=== PATIENT | male | born 1960 | race Hispanic/Latino ===

== ENCOUNTER 2016-11-15 15:47 | Inpatient (IN) | payer MEDICAID, OTHER ==
[~2016-11-15] VITALS: Ht 157.5 cm; Wt 79.4 kg
[~2016-11-15 15:47] MED LIST: ASPIRIN EC325 MG ORAL; ATENOLOL50 MG ORAL; COUMADIN10 MG ORAL; DIGOXIN250 MCG ORAL; FOLIC ACID1 MG ORAL; FUROSEMIDE40 MG ORAL; LISINOPRIL10 MG ORAL; LOPRESSOR25 M1 ORAL; MAGNESIUM OXID400 M1 ORAL; METFORMIN HCL500 M1 ORAL; METOPROLOL TART50 MG ORAL; MULTIVITAMINS1 EAC2 ORAL; OMEPRAZOLE20 M2 ORAL; SPIRONOLACTONE25 MG ORAL; VITAMIN B-1100 MG ORAL
[2016-11-15 16:20] VITALS: BP 115/63
--- NOTE | 2016-11-15 17:13 | Emergency Room Report ---
History of Present Illness General Chief Complaint: Alcohol Intoxication Source: Patient, EMS Present Illness HPI 56YOM BIBEMS for public intoxication. Patient drank 2 handles of vodka and 2 "Chris Cobras". Drinks regularly. Atraumatic. Denies chest pain, SOB, fever/ chills, abd pain. Denies drug use. Has sternotomy scar but cant explain why Allergies: Coded Allergies: No Known Allergies (Unverified , 12/22/14) Patient History Past Medical History: other - CHF, SVT Past Surgical History: unable to obtain Pertinent Family History: unable to obtain Social History: Reports: alcohol use, Denies: drug use, smoking Immunizations: UTD Reviewed Nursing Documentation: PMH: Agreed, PSxH: Agreed Nursing Documentation-PMH Past Medical History: No Stated History Hx Cardiac Problems: Yes - heart murmur, cardiomegaly surgery at 12 yrs of age Hx Hypertension: No Hx Pacemaker: No Hx Asthma: No Hx COPD: Yes Hx Diabetes: Yes Hx Cancer: No Hx Gastrointestinal Problems: No Hx Neurological Problems: No Review of Systems All Other Systems: limited - Acute intox Physical Exam Vital Signs Date Time Temp Pulse Resp B/P Pulse Ox O2 Delivery O2 Flow Rate FiO2 11/15/16 15:34 99.3 133 16 121/80 96 Room Air Sp02 EP Interpretation: reviewed, abnormal General Appearance: normal inspection, well appearing, no apparent distress, alert, other - +AOB, intoxicated Head: normocephalic, atraumatic Eyes: bilateral eye EOMI, bilateral eye PERRL ENT: normal ENT inspection, hearing grossly normal, normal voice Neck: normal inspection, full range of motion, supple, no bony tend Respiratory: normal inspection, lungs clear, normal breath sounds, no respiratory distress, no retraction, no wheezing, other - sternotomy scar, chest symmetrical Cardiovascular #1: regular rate, rhythm, no edema Gastrointestinal: normal inspection, normal bowel sounds, non tender, soft, no guarding, no hernia Genitourinary: no CVA tenderness Musculoskeletal: normal inspection, back normal, normal range of motion, Rc' s Sign negative Neurologic: normal inspection, alert, oriented x3, responsive, retail account representative III-XII nml as tested, motor strength/tone normal, DTRs symmetric, speech normal Skin: normal inspection, normal color, no rash Medical Decision Making Diagnostic Impression: Primary Impression: Acute alcoholic intoxication Qualified Codes: F10.920 - Alcohol use, unspecified with intoxication, uncomplicated Additional Impressions: Tachycardia Rhabdomyolysis Qualified Codes: M62.82 - Rhabdomyolysis ER Course ETOH level >200 Trop 0 CK elevated but without RADHIKA Gentle hydration given in ED given history of CHF Endorsed to Dr Coy to dispo pending sobriety EKG Diagnostic Results Rate: tachycardiac Rhythm: NSR ST Segments: no acute changes ASA given to the pt in ED: No Rhythm Strip Diag. Results EP Interpretation: yes Rate: 133 Rhythm: NSR, no PVC's, no ectopy Chest X-Ray Diagnostic Results EP Interpretation: Yes Findings: no pneumothorax, no acute cardiopulmonary disease, other - Sternotomy wires. Prominent vasculature unchanged from Mar 2016 CXR Number of Views: 1 Last Vital Signs Date Time Temp Pulse Resp B/P Pulse Ox O2 Delivery O2 Flow Rate FiO2 11/15/16 16:20 99.3 134 16 115/63 94 Room Air Status: improved Disposition: HOME, SELF-CARE ANTHONY RUDOLPH M.D. Nov 15, 2016 17:13
[2016-11-15 17:37] LABS: BASOPHILS % (AUTO) 1.9 % (0.0-2.0); EOSINOPHILS % (AUTO) 1.2 % (0.0-3.0); LYMPHOCYTES % (AUTO) 27.5 % (20.0-45.0); MEAN CORPUSCULAR HEMOGLOBIN 33.9 PG (27.0-31.0); MEAN CORPUSCULAR VOLUME 91 FL (80-99); MEAN PLATELET VOLUME 7.8 FL (6.5-10.1); MONOCYTES % (AUTO) 8.7 % (1.0-10.0); NEUTROPHILS % (AUTO) 60.7 % (45.0-75.0); PLATELET COUNT 168 K/UL (150-450); RED BLOOD COUNT 3.67 M/UL (4.70-6.10); RED CELL DISTRIBUTION WIDTH 13.8 % (11.6-14.8); WHITE BLOOD COUNT 4.9 K/UL (4.8-10.8)
[2016-11-15 17:48] VITALS: BP 117/79
[2016-11-15 18:00] LABS: TROPONIN I < 0.30 ng/mL (<=0.30)
[2016-11-15 18:01] LABS: ALANINE AMINOTRANSFERASE 19 U/L (3-41); ALBUMIN/GLOBULIN RATIO 1.5 (1.0-2.7); ANION GAP 15 (5-15); ASPARTATE AMINO TRANSFERASE 39 U/L (5-40); CALCIUM 8.3 mg/dL (8.6-10.2); CARBON DIOXIDE 24 mEQ/L (20-30); CHLORIDE 100 mEQ/L (98-107); CREATININE 0.8 mg/dL (0.7-1.2); GLOMERULAR FILTRATION RATE > 60 mL/min (>60); HEMOLYSIS 1; POTASSIUM 4.1 mEQ/L (3.4-4.9); SODIUM 139 mEQ/L (135-145); TOTAL PROTEIN 6.7 g/dL (6.6-8.7)
[2016-11-15 18:11] LABS: CKMB 3.5 ng/mL (< 6.7)
[2016-11-15 19:30] VITALS: BP 105/71
[2016-11-15 21:30] VITALS: BP 121/67
[2016-11-15 23:00] VITALS: BP 130/70
[2016-11-16] VITALS (10 sets, daily range): BP systolic 118–133; BP diastolic 62–82
[2016-11-16] MEDS ORDERED: Thiamine HCl 100 MG in D5W 55 ML IVPB STA (03:08)
[2016-11-16] MEDS ORDERED: LORazepam Inj 2mg/ml 1ml IV ONE (03:15)
[2016-11-16] MEDS ORDERED: Thiamine HCl 100mg/ml Inj ONE (03:42)
[2016-11-16] MEDS ORDERED: LORazepam Inj 2mg/ml 1ml ONE (03:42)
[2016-11-16] MEDS ORDERED: UNOBMED (05:58)
[2016-11-16] MEDS: Aspirin EC 325mg tab ORAL SCH (10:37)
[2016-11-16] MEDS: Digoxin 0.125mg tab ORAL SCH (10:37)
[2016-11-16] MEDS: metFORMIN 500mg tab ORAL SCH ×2 (10:37→17:49)
[2016-11-16] MEDS: Furosemide 40mg tab ORAL SCH (10:37)
[2016-11-16] MEDS: Lisinopril 10mg tab ORAL SCH (10:37)
[2016-11-16] MEDS: Magnesium Oxide 400mg tab ORAL SCH (10:37)
[2016-11-16] MEDS: Metoprolol 50mg tab ORAL SCH ×2 (10:38→22:30)
[2016-11-16] MEDS: Spironolactone 25mg tab ORAL SCH (10:38)
[2016-11-16] MEDS: Heparin 5000 units/ml inj SUBQ SCH ×2 (10:38→22:00)
[2016-11-16] MEDS: Thiamine 100mg tab ORAL SCH (11:08)
--- NOTE | 2016-11-16 11:50 | Diagnostic Imaging Report ---
Indication: Chest Pain Comparison: 04/05/16 A single view chest radiograph was obtained. Findings: Pulmonary vascularity is prominent as is heart size but findings appear unchanged. Sternotomy is noted. Impression: Suspected mild pulmonary vascular congestion. Please correlate clinically
[2016-11-16] MEDS: NovoLOG Insulin Flexpen SUBQ SCH ×3 (11:54→22:00)
--- NOTE | 2016-11-16 12:27 | Diagnostic Imaging Report ---
Indication: Cough Comparison: 11/15/16 A single view chest radiograph was obtained. Findings: Sternotomy noted. Lungs are clear. Heart is mildly enlarged. Bones are unremarkable. Impression: No acute disease
--- NOTE | 2016-11-16 18:00 | History and Physical Report ---
DATE OF ADMISSION: 11/16/2016 CHIEF COMPLAINT: intoxication. HISTORY OF PRESENT ILLNESS: This is a 56-year-old male who drinks excessively vodka and was brought in by paramedics due to intoxication. The patient is admitted to medical floor. PAST MEDICAL HISTORY: The patient patient has a sternotomy scar but cannot explain why. Cardiomyopathy, history of atrial flutter. MEDICATIONS: Baby aspirin, digoxin, folic acid, Lasix, lisinopril, magnesium oxide, metformin, metoprolol, multivitamin, , spironolactone, thiamine. ALLERGIES: No known drug allergies. SOCIAL HISTORY: Unable to obtain, the patient is sleepy. FAMILY HISTORY: Unable to obtain, the patient is sleepy. REVIEW OF SYSTEMS: Unable to obtain, the patient is sleepy. PHYSICAL EXAMINATION: GENERAL: This is a middle-aged male, who is in no acute distress. VITAL SIGNS: Blood pressure 129/70, pulse 100 sinus tachycardia, respirations 18, temperature 98. HEENT: Head is normocephalic and atraumatic. Pupils are equal, round, and reactive to light and accommodation consensually. NECK: Supple. Trachea midline. There was no lymphadenopathy or thyromegaly. LUNGS: Clear to auscultation and percussion. HEART: Regular rate and rhythm without rubs, murmurs, or gallops. ABDOMEN: Soft. Bowel sounds were active. EXTREMITIES: No clubbing, cyanosis, or edema. NEUROLOGICAL: He is sleepy but arousable. LABORATORY AND ANCILLARY DATA: CBC within normal limits. Serum chemistry with glucose of 129. CPK 555. Serum alcohol 280 mg/dL. EKG not available in the chart. Chest x-ray not reported. ASSESSMENT: 1. Alcohol intoxication. 2. The patient has a sternotomy scar but cannot explain why. 3. Cardiomyopathy, history of atrial flutter. PLAN: 1. Obtain EKG and chest x-ray. 2. Resume the patient's known medications for the past cautiously. 3. Transfer to a telemetry. Valdemar Olivier M.D. DR: Jailene JOB#: [id number] CC:
[2016-11-17] VITALS: BP 112/60
[2016-11-17 04:00] VITALS: BP 120/68
[2016-11-17] MEDS: NovoLOG Insulin Flexpen SUBQ SCH ×4 (06:30→21:00)
[2016-11-17 07:35] VITALS: BP 122/78
[2016-11-17] MEDS: Aspirin EC 325mg tab ORAL SCH (09:47)
[2016-11-17] MEDS: metFORMIN 500mg tab ORAL SCH ×2 (09:47→18:11)
[2016-11-17] MEDS: Magnesium Oxide 400mg tab ORAL SCH (09:47)
[2016-11-17] MEDS: Lisinopril 10mg tab ORAL SCH (09:49)
[2016-11-17] MEDS: Furosemide 40mg tab ORAL SCH (09:49)
[2016-11-17] MEDS: Spironolactone 25mg tab ORAL SCH (09:49)
[2016-11-17] MEDS: Digoxin 0.125mg tab ORAL SCH (09:49)
[2016-11-17] MEDS: Metoprolol 50mg tab ORAL SCH ×2 (09:50→21:27)
[2016-11-17] MEDS: Heparin 5000 units/ml inj SUBQ SCH ×2 (09:54→21:29)
[2016-11-17] MEDS: Thiamine 100mg tab ORAL SCH (09:57)
[2016-11-17 11:29] VITALS: BP 117/73
--- NOTE | 2016-11-17 12:05 | General Progress Note ---
Assessment/Plan Assessment/Plan Alcohol intoxication - resolving. s/p open heart surgery ? nature. Patient cannot tell if CABG vs. valvular. A. Flutter/Fib. Cardiology to advise. Dilemma - patient is alcohol consumer and unreliable Subjective Allergies: Coded Allergies: No Known Allergies (Unverified , 12/22/14) Subjective Much more alert. Objective Last 24 Hour Vital Signs Date Time Temp Pulse Resp B/P Pulse Ox O2 Delivery O2 Flow Rate FiO2 11/17/16 11:29 97.7 69 20 117/73 98 Room Air 11/17/16 09:50 92 122/78 11/17/16 09:49 122/78 11/17/16 09:49 92 11/17/16 07:35 97.9 92 18 122/78 98 Room Air 11/17/16 04:00 68 11/17/16 04:00 97.7 72 18 120/68 98 Room Air 11/17/16 00:00 98.0 62 18 112/60 98 Room Air 11/17/16 00:00 72 11/16/16 22:30 93 118/64 11/16/16 20:00 98.0 93 18 118/64 98 Room Air 11/16/16 20:00 98 11/16/16 16:00 97.3 97 18 128/71 98 Room Air 11/16/16 16:00 89 Intake and Output 11/16/16 11/17/16 19:00 07:00 # Voids 3 3 Height (Feet): 5 Height (Inches): 2.00 Weight (Pounds): 175 Objective CV IRR . Monitor A. Fib./Flutter ~ 90 Lungs CTA Abd SNT. BS + E No CCE LANETTE GARCIA Nov 17, 2016 12:05
[2016-11-17 15:19] VITALS: BP 114/77
--- NOTE | 2016-11-17 18:01 | Cardiology Progress Note ---
Subjective Subjective [id number] Objective Last 24 Hour Vital Signs Date Time Temp Pulse Resp B/P Pulse Ox O2 Delivery O2 Flow Rate FiO2 11/17/16 15:19 97.9 100 18 114/77 99 Room Air 11/17/16 12:00 70 11/17/16 11:29 97.7 69 20 117/73 98 Room Air 11/17/16 09:50 92 122/78 11/17/16 09:49 122/78 11/17/16 09:49 92 11/17/16 08:00 95 11/17/16 07:35 97.9 92 18 122/78 98 Room Air 11/17/16 04:00 68 11/17/16 04:00 97.7 72 18 120/68 98 Room Air 11/17/16 00:00 98.0 62 18 112/60 98 Room Air 11/17/16 00:00 72 11/16/16 22:30 93 118/64 11/16/16 20:00 98.0 93 18 118/64 98 Room Air 11/16/16 20:00 98 Intake and Output 11/16/16 11/17/16 19:00 07:00 # Voids 3 3 JOHNNY DILLARD Nov 17, 2016 18:01
[2016-11-17 20:00] VITALS: BP 128/83
[2016-11-18] VITALS: BP 126/79
--- NOTE | 2016-11-18 03:45 | Consultation ---
DATE OF CONSULTATION: 11/17/2016 CARDIOLOGY CONSULTATION IDENTIFICATION DATA: This is a 56-year-old gentleman. Reason for him being admitted is that he is with alcohol intoxication and he was brought here for observation. His alcohol upon admission was 280. From cardiac standpoint, the patient has history of heart surgery four years ago at [facility] and he . I suspect that he had a valve replaced although I cannot see them in chest x-ray, but he definitely had a cardiac surgery. He denies any dyspnea, chest pain, or palpitations. He said that after the previous surgery, he had to take Coumadin for six months and then he could stop it and he stopped it because he did not get along very well with his alcohol abuse. PAST MEDICAL HISTORY: Significant for hypertension, diabetes, and cardiac disease. Now, he is in atrial flutter. He is not sure how long he has been in atrial flutter. He is not following very close, but he definitely was told that six months after his surgery, he can switch to aspirin. ALLERGIES: Not reported. HABITS: He is alcoholic. He denies any use of illicit drugs or cigarettes. REVIEW OF SYSTEMS: He had history of abdominal pain. Right now, he denies any PND, orthopnea, syncope, palpitations, or dyspnea. He does not have any lower extremity edema and his exercise capacity is pretty good when he is not drinking. PHYSICAL EXAMINATION: GENERAL: This is a middle aged man, sitting watching TV, comfortable. VITAL SIGNS: Blood pressure 110/70, heart rate 70, and oxygen saturation is 98% on room air. HEENT: PERRLA. EOMI. There is no jaundice. NECK: Neck veins are approximately 8 cm. Carotid upstroke is brisk bilaterally without bruits. LUNGS: He has no crackles or wheezing. It is clear to auscultation. His midsternal scar is well healed. HEART: His PMI is in the sixth intercostal space in the mid axillary line. He has slightly accentuated S2. ABDOMEN: Soft and nontender. No masses palpable. EXTREMITIES: Lower extremities, no edema. NEUROLOGIC: He is intact. LABORATORY DATA: Noted mild anemia, otherwise unremarkable. NPA is 372. Troponin is negative. His EKG revealed presence of atrial flutter, otherwise no significant ST-T changes or evidence of hypertrophy of any right or left ventricle. Glucose 129. IMPRESSION AND RECOMMENDATIONS: This patient had valve surgery. I cannot think by listening that there was mitral valve replacement. The x-ray does not show it. Echo was not done. He follows usually at [facility]. He will follow there. He said that he did not like to take Coumadin because he thought that it is not agreeing with the beer, and I am pretty agreeable with him that combination of alcohol and Coumadin is not very good combination, unpredictable, and potential risk of bleeding is high if he develops coagulopathy due to liver cirrhosis etc. So because he is at high risk, he should not be on Coumadin unless he has very close follow up, which potentially could be arranged. His CHADS2 score based on the presence of hypertension and diabetes is atleast 2, and he definitely has high risk for thromboembolic complications especially if he has history of an aortic valve disease. However, because of the risk of bleeding and poor compliance, I would not take on myself to recommend this patient to be anticoagulated, however, he probably should take aspirin. Thank you very much for your consultation. Caitlin Moore M.D. DR: KEELY JOB#: [id number] CC:
[2016-11-18 04:00] VITALS: BP 134/97
[2016-11-18] MEDS: NovoLOG Insulin Flexpen SUBQ SCH ×2 (06:29→11:18)
[2016-11-18 07:49] VITALS: BP 124/75
[2016-11-18] MEDS: Digoxin 0.125mg tab ORAL SCH (08:21)
[2016-11-18] MEDS: Metoprolol 50mg tab ORAL SCH (08:21)
[2016-11-18] MEDS: Furosemide 40mg tab ORAL SCH (08:21)
[2016-11-18] MEDS: Aspirin EC 325mg tab ORAL SCH (08:21)
[2016-11-18] MEDS: Thiamine 100mg tab ORAL SCH (08:22)
[2016-11-18] MEDS: Magnesium Oxide 400mg tab ORAL SCH (08:22)
[2016-11-18] MEDS: metFORMIN 500mg tab ORAL SCH (08:22)
[2016-11-18] MEDS: Heparin 5000 units/ml inj SUBQ SCH (08:23)
[2016-11-18] MEDS: Spironolactone 25mg tab ORAL SCH (08:23)
[2016-11-18] MEDS: Lisinopril 10mg tab ORAL SCH (08:24)
[2016-11-18 11:51] VITALS: BP 111/72
--- NOTE | 2016-11-18 13:04 | General Progress Note ---
Assessment/Plan Assessment/Plan Alcohol intoxication - resolving. s/p open heart surgery ? nature. Patient cannot tell if CABG vs. valvular.Cardiology noted. m/p s/p AVR @ [facility]. 2 D Echo unremarkable. A. Flutter/Fib. DC home with ASA. Subjective Allergies: Coded Allergies: No Known Allergies (Unverified , 12/22/14) Subjective Much more alert. Objective Last 24 Hour Vital Signs Date Time Temp Pulse Resp B/P Pulse Ox O2 Delivery O2 Flow Rate FiO2 11/18/16 11:51 97.5 75 18 111/72 97 Room Air 11/18/16 08:24 124/75 11/18/16 08:21 78 124/75 11/18/16 08:21 78 11/18/16 08:00 87 11/18/16 07:49 97.0 78 18 124/75 99 Room Air 11/18/16 04:00 81 11/18/16 04:00 97.8 97 21 134/97 98 Room Air 11/18/16 00:00 97.7 81 21 126/79 99 Room Air 11/18/16 00:00 81 11/17/16 21:27 87 128/83 11/17/16 20:00 97.8 87 19 128/83 98 Room Air 11/17/16 20:00 70 11/17/16 15:19 97.9 100 18 114/77 99 Room Air Intake and Output 11/17/16 11/18/16 19:00 07:00 Intake Total 360 ml 300 ml Balance 360 ml 300 ml Intake Oral 360 ml 300 ml # Voids 3 2 Height (Feet): 5 Height (Inches): 2.00 Weight (Pounds): 175 Objective CV IRR . Monitor A. Fib./Flutter ~ 90 Lungs CTA Abd SNT. BS + E No CCE LANETTE GARCIA Nov 18, 2016 13:04
--- NOTE | 2016-11-18 17:54 | Cardiology Report ---
APPROVED REPORT EKG Measurement Heart [id number] [id number] Atrial flutter with variable AV block Incomplete right bundle branch block Abnormal ECG
--- NOTE | 2016-11-19 12:55 | Discharge Summary ---
Discharge Summary Hospital Course Date of Admission Nov 16, 2016 at 03:56 Date of Discharge Nov 18, 2016 at 15:39 Admitting Diagnosis ALCOHOL WITHDRAWAL FABRICE Gallegos is a 56 year old male who was admitted on Nov 16, 2016 at 03:56 for Alcohol Withdrawal Hospital Course [id number] Discharge Discharge Disposition Patient was discharged to Home (01) Discharge Diagnoses: Kandi Marcus NP Nov 19, 2016 12:55
--- NOTE | 2016-11-20 03:30 | Discharge Summary 2 SIG ---
DATE OF ADMISSION: 11/16/2016 DATE OF DISCHARGE: 11/18/2016 [employer] OFFICER: Caitlin Moore M.D. BRIEF HOSPITAL COURSE: The patient is a 56-year-old male, who drinks excessive vodka, was brought in by paramedics due to intoxication. On evaluation at ED, ETOH level was greater than 200. CK was elevated, but without acute kidney injury. He was given gentle hydration at ED, given history of congestive heart failure and patient was eventually admitted for further care. He was admitted to the medical floor and was followed by Dr. Moore. He had a history of heart surgery 4 years ago at [facility]. His EKG was in atrial flutter otherwise no significant ST to T-wave changes or evidence of hypertrophy. He is usually being followed up at [facility] and admitted to not taking Coumadin as it is not good to be taken with alcohol. His CHADS2 score based on presence of hypertension and diabetes is at least 2 and is high risk for thromboembolic complications, however, because of risk of bleeding and poor compliance would not recommend to be on anticoagulation with Coumadin. He was given thiamine and folic acid. Intoxication resolving. The patient was discharged home. Advised to continue with aspirin. FINAL DIAGNOSES: 1. Alcohol intoxication. 2. Status post open heart surgery, questionable and make sure. 3. Atrial flutter/fibrillation. Valdemar Olivier M.D. I have been assigned to dictate discharge summary on this account and I was not involved in the patient's management. Kandi Marcus N.P. DR: JOSE JOB#: [id number] CC:
== END 2016-11-18 15:39 | disposition home or self-care (01) | DRG 775 ==
LOC: EDBD 15:47 → EMR 18:21 → 4E 11-16 03:56 → EDBEDREQ 11-16 04:53 → 2E 11-16 09:45
DX: F10.239 Alcohol dependence with withdrawal, unspecified (principal); I42.9 Cardiomyopathy, unspecified; M62.82 Rhabdomyolysis; I10 Essential (primary) hypertension; E11.9 Type 2 diabetes mellitus without complications; D64.9 Anemia, unspecified; F10.229 Alcohol dependence with intoxication, unspecified; Y90.8 Blood alcohol level of 240 mg/100 ml or more; Z95.2 Presence of prosthetic heart valve; I48.92 Unspecified atrial flutter; I48.91 Unspecified atrial fibrillation; R00.0 Tachycardia, unspecified; R10.31 Right lower quadrant pain
CPT/HCPCS: 36415; 71010; 80053; 80329; 82550; 82553; 82962; 83880; 84484; 85025; 87081; 93005; 93306; J1815